=== PATIENT | female | born 1990 | race Caucasian/White ===

== ENCOUNTER 2021-02-15 11:19 | Emergency (ER) | payer OTHER ==
--- NOTE | 2021-02-15 12:39 | EDM.PDOC ---
ED HPI GENERAL MEDICAL PROBLEM - General Chief Complaint: ENT Problem Stated Complaint: DENTAL SURERY TUESDAY SWELLING Time Seen by Provider: 02/15/21 12:25 Source of Information: Reports: Patient History Limitations: Reports: No Limitations - History of Present Illness INITIAL COMMENTS - FREE TEXT/NARRATIVE: 30 yo female present to ER with dental pain. She had oral surgery to bone graph for upper jaw implants. seen by surgeon 2 days ago. has been on prednisone tapering dose since surgery until yesterday. pain has remained present since surgery at a constant level. She has been taking 600 mg of ibuprofen for pain. She has been eating soft foods. mild increase in swelling, took her invisaline retainer out yesterday and has not been able to fit it back in. She denies general ill feeling or fever. denies foul taste. Bilateral Upper Oral/Mouth Pain Score (Numeric/FACES): 10 - Related Data Allergies Allergy/AdvReac Type Severity Reaction Status Date / Time amoxicillin Allergy Other Verified 02/15/21 12:12 clindamycin Allergy Other Verified 02/15/21 12:13 Home Meds: Home Meds Ibuprofen 600 mg PO Q6H PRN 02/15/21 [History] Social & Family History - Tobacco Use Tobacco Use Status *Q: Never Tobacco User ED ROS ENT - Review of Systems Review Of Systems: See Below Constitutional: Denies: Fever, Chills, Malaise, Fatigue HEENT: Reports: Dental Pain Respiratory: Denies: Shortness of Breath, Wheezing Cardiovascular: Denies: Chest Pain ED EXAM, ENT - Physical Exam Exam: See Below Exam Limited By: No Limitations General Appearance: Alert, WD/WN, No Apparent Distress Mouth/Throat: Dental Tenderness, Other (mild edema along gum line no fluctuance noted, mild erythema ) Course - Vital Signs Last Recorded V/S: Last Vital Signs Temp 36.6 C 02/15/21 12:10 Pulse 80 02/15/21 12:10 Resp 16 02/15/21 12:10 BP 137/77 02/15/21 12:10 Pulse Ox 99 02/15/21 12:10 Departure - Departure Time of Disposition: 12:39 Disposition: Home, Self-Care 01 Condition: Good Clinical Impression: Dental implant pain Qualifiers: Encounter type: initial encounter Qualified Code(s): T85.848A - Pain due to other internal prosthetic devices, implants and grafts, initial encounter - Discharge Information *PRESCRIPTION DRUG MONITORING PROGRAM REVIEWED*: Not Applicable *COPY OF PRESCRIPTION DRUG MONITORING REPORT IN PATIENT WILMA: Not Applicable Instructions: Dental Pain, [id number] Referrals: PCP,None [Primary Care Provider] - Forms: ED Department Discharge Additional Instructions: continue prednisone 10 mg for 5 days take 1000 mg of tylenol with 600 mg of ibuprofen every 6 hours for pain norco for severe pain break through pain follow-up with our oral surgeon on Tuesday Sepsis Event Note (ED) - Evaluation Sepsis Screening Result: No Definite Risk - Focused Exam Vital Signs: Vital Signs Temp Pulse Resp BP Pulse Ox 02/15/21 12:10 36.6 C 80 16 137/77 99
== END 2021-02-15 13:04 | disposition home or self-care (01) ==
LOC: JP.ED 11:19
DX: T85.848A Pain due to other internal prosthetic devices, implants and grafts, initial encounter (principal); R60.0 Localized edema; Z88.0 Allergy status to penicillin; Z88.1 Allergy status to other antibiotic agents
CPT/HCPCS: 99282